=== PATIENT | male | born 1990 ===

== ENCOUNTER 2018-05-09 20:43 | Emergency (ER) | payer BC ==
[2018-05-09 20:51] VITALS: O2SAT 99
--- NOTE | 2018-05-09 21:56 | ED PDOC ---
HPI: Skin/Bite Injury Time Seen by Provider: 05/09/18 21:01 Chief Complaint (Nursing): Abnormal Skin Integrity Chief Complaint (Provider): "lump" to head History Per: Patient, Supervisor [facility] ([id number]) History/Exam Limitations: no limitations Onset/Duration Of Symptoms: Hrs Current Symptoms Are (Timing): Still Present Quality Of Symptoms: Swollen Additional Complaint(s): 28 year old male presents to the ED for evaluation of a lump to the back of his head which he noticed this morning upon waking up. Patient reports of localized discomfort and notices the lump with movement of his head. He has not taken any medication and denies any associated symptoms or headache. Otherwise, patient denies recent fever, nausea, URI, vomiting, cough, shortness of breath, throat pain, ear pain, sick contacts, recent travel, night sweats or weight loss. PMD: no family provider Past Medical History Reviewed: Historical Data, Nursing Documentation, Vital Signs Vital Signs: Last Vital Signs Temp 98.1 F 05/09/18 20:49 Pulse 91 H 05/09/18 20:49 Resp 16 05/09/18 20:49 BP 175/75 H 05/09/18 20:49 Pulse Ox 99 05/09/18 20:49 - Medical History PMH: No Chronic Diseases - Surgical History Surgical History: No Surg Hx - Family History Family History: States: No Known Family Hx - Social History Alcohol: Social Drugs: Denies - Home Medications Home Medications: Ambulatory Orders Medication Instructions Recorded RX: Ibuprofen [Motrin Tab] 800 mg PO Q8 PRN #21 tab 05/09/18 - Allergies Allergies/Adverse Reactions: Allergies Allergy/AdvReac Type Severity Reaction Status Date / Time No Known Allergies Allergy Verified 05/09/18 20:49 Review of Systems ROS Statement: Except As Marked, All Systems Reviewed And Found Negative Constitutional: Negative for: Fever, Chills, Sweats, Weight loss ENT: Negative for: Ear Pain, Throat Pain Respiratory: Negative for: Cough, Shortness of Breath Musculoskeletal: Negative for: Neck Pain Skin: Positive for: Other ("lump" to back of head) Neurological: Negative for: Headache Physical Exam - Reviewed Nursing Documentation Reviewed: Yes Vital Signs Reviewed: Yes - Physical Exam Comments: GENERAL APPEARANCE: Patient is awake, alert, oriented x3, in no acute distress. SKIN: Warm, dry; (-) cyanosis; (-) petechiae EYES: (-) conjunctival pallor, (-) icterus. HEAD: (-) scalp tenderness or hematoma (+) Palpable mobile, non-tender lymph node x1 that is 1cm x 1cm to the right posterior auricular/ posterior cervical region (-) erythema, (-) cellulitis, (-) warmth ENMT: TMs: (-) bulging, (-) erythema. Pharynx: clear, uvula midline (-) tonsillar erythema, (-) tonsillar exudate. Airway patent, (-) stridor. Mucous membranes moist. NECK: Supple, (+) full ROM, (-) stiffness, (-) meningismus, (-) lymphadenopathy. CHEST AND RESPIRATORY: (-) retractions, (-) rales, (-) rhonchi, (-) wheezes; b reath equal bilaterally. HEART AND CARDIOVASCULAR: (-) irregularity ABDOMEN AND GI: Soft; (-) tenderness; (-) distention, (-) guarding EXTREMITIES: (-) deformity NEURO AND PSYCH: Mental status as above; Gait: steady. Speech Clear. (-) facial asymmetry - ECG O2 Sat by Pulse Oximetry: 99 (RA) Pulse Ox Interpretation: Normal Medical Decision Making Medical Decision Making: Time: 2119 Initial impression: swollen lymph node Initial plan: Toradol 30mg Repeat BP: 138/82 Based on history, exam and diagnostic results, plan will be for outpatient follow up. Patient instructed to follow-up with pmd / referral provided / the clinic in 1- 2 days without fail. Advised to take medication as prescribed. Return to the emergency room at any time for any new or worsening symptoms. Patient states he fully agrees with and understands discharge instructions. States that he agrees with the plan and disposition. Verbalized and repeated discharge instructions and plan. I have given the patient opportunity to ask any additional questions. Scribe Attestation: Documented by Riya Giles, acting as a scribe for Miracle See PA-C. Provider Scribe Attestation: All medical record entries made by the Scribe were at my direction and personally dictated by me. I have reviewed the chart and agree that the record accurately reflects my personal performance of the history, physical exam, medical decision making, and the department course for this patient. I have also personally directed, reviewed, and agree with the discharge instructions and disposition. Disposition - Clinical Impression Clinical Impression: Swelling of lymph node - Patient ED Disposition Is Patient to be Admitted: No Counseled Patient/Family Regarding: Studies Performed, Diagnosis, Need For Followup, Rx Given - Disposition Referrals: [facility] [Outside] Disposition: Routine/Home Disposition Time: 21:50 Condition: STABLE Additional Instructions: La atencin mdica de emergencia que recibi hoy se dirigi a gosia sntomas agudos. Si le recetaron algn medicamento, llnelo y tmelo segn las indicaciones. Los sntomas pueden tardar varios gutierrez en resolverse. Regrese al Departamento de Emergencias si gosia sntomas empeoran, no mejoran o si tiene otros problemas. Comunquese con lopez mdico dentro de 2 gutierrez para brandi nueva evaluacin y john un seguimiento o llame a shala de los mdicos / clnicas a los que bowser sido referido y que figuran en el formulario de Informacin de visita al paciente que se incluye en lopez paquete de margo. Lleve todos los documentos que le entregaron al momento del margo junto con todos los medicamentos que est tomando para lopez visita de seguimiento. Nuestro tratamiento no puede reemplazar la atencin mdica continua por parte de un proveedor de atencin primaria (PCP) fuera del departamento de emergencias. Prescriptions: RX: Ibuprofen [Motrin Tab] 800 mg PO Q8 PRN #21 tab PRN Reason: pain, inflammation Instructions: Swollen Neck Nodes in Children Forms: [employer] (Romansh) Print Language: YI - POYaneth Present On Arrival: None
[2018-05-09 21:57] VITALS: BP 138/82; PULSE 78; RESP 18; TEMP 98.2
== END 2018-05-09 22:00 | disposition home or self-care (01) ==
LOC: H.ER 20:43
DX: R22.1 Localized swelling, mass and lump, neck (principal)
CPT/HCPCS: 96372; 99281; J1885